=== PATIENT | female | born 1995 | race Caucasian/White ===

== ENCOUNTER 2019-06-10 14:16 | Emergency (ER) | payer SELFPAY ==
[~2019-06-10] VITALS: Ht 162.6 cm; Wt 66.2 kg
--- NOTE | 2019-06-10 14:30 | NUR ---
PT PRESENTS TO ED FEELING SUICIDAL. PT STATES SHE WAS ON DEPRESSION MEDS 2 YEARS AGO. STOPPED SEEING MD AT THAT TIME. PT STATES BROTHER COMMITTED SUICIDE LAST YEAR AND FATHER RECENTLY DX WITH CANCER. DENIES HI. HAS NO PLAN AT THIS TIME. ALL BELONGINGS IN SECURED LOCKER. PT IN SECURED ROOM
[2019-06-10 15:21] LABS: HCG UR SG 1.021 (1.003-1.030)
[2019-06-10 15:25] LABS: BASOPHILS # (AUTO) 0.04 x10^3/uL (0-0.1); BASOPHILS % (AUTO) 1 % (0-1); EOSINOPHILS # (AUTO) 0.02 x10^3/uL (0-0.4); EOSINOPHILS % (AUTO) 0 % (1-7); LYMPHOCYTES # (AUTO) 1.88 x10^3/uL (1-3.4); LYMPHOCYTES % (AUTO) 23 % (22-44); MD NO; MEAN CORPUSCULAR HEMOGLOBIN 28.3 pg (27.0-34.8); MEAN CORPUSCULAR HGB CONC 33.3 g/dL (32.4-35.8); MEAN CORPUSCULAR VOLUME 85.1 fL (80-100); MEAN PLATELET VOLUME 8.1 fL (7.4-10.4); MONOCYTES # (AUTO) 0.62 x10^3/uL (0.2-0.8); MONOCYTES % (AUTO) 8 % (2-9); NEUTROPHILS # (AUTO) 5.77 x10^3/uL (1.8-6.8); NEUTROPHILS % (AUTO) 69 % (42-75); PLATELET COUNT 392 x10^3/uL (130-400); RED BLOOD COUNT 4.81 x10^6/uL (3.82-5.3); RED CELL DISTRIBUTION WIDTH 15.1 % (9.6-15.2)
[2019-06-10 15:30] LABS: ALBUMIN 3.4 g/dL (3.4-5.0); ANION GAP 6 mmol/L (5-15); CHLORIDE 111 mmol/L (98-107)
[2019-06-10 15:31] LABS: SALICYLATE LEVEL < 1.7 mg/dL (2.8-20.0)
[2019-06-10 15:34] LABS: ALANINE AMINOTRANSFERASE 22 U/L (12-78); ALKALINE PHOSPHATASE 46 U/L (45-117); BILIRUBIN,TOTAL 0.7 mg/dL (0.2-1.0); CREATININE 0.55 mg/dL (0.55-1.02)
[2019-06-10 15:57] LABS: AMPHETAMINE SCREEN, URINE Negative (Negative); BARBITURATE SCREEN, URINE Negative (Negative); BENZODIAZEPINE SCREEN, URINE Negative (Negative); CANNABINOID SCREEN, URINE Positive (Negative); COCAINE SCREEN, URINE Negative (Negative); METHADONE SCREEN, URINE Negative (Negative); OPIATE SCREEN, URINE Negative (Negative)
--- NOTE | 2019-06-10 15:57 | NUR ---
PT RESTIN ON GURSAMM. NO NEEDS AT THIS TIME
--- NOTE | 2019-06-10 16:48 | NUR ---
PATIENT DENIED BY JOSE FROM [facility] SHE IS SELF PAY
--- NOTE | 2019-06-10 16:50 | NUR ---
PT IS RESTING JUAN JOSÉ. GIVEN SNACKS AND WATER
--- NOTE | 2019-06-10 17:14 | NUR ---
PT GIVEN WARM BLANKET AND TV CONTROLER
--- NOTE | 2019-06-10 17:42 | NUR ---
GIVEN MEAL TRAY.
--- NOTE | 2019-06-10 19:38 | NUR ---
GIVEN TOOTHPAST AND TOOTHBRUSH.
--- NOTE | 2019-06-10 19:45 | NUR ---
CALLED FOR HOSPITAL BED
--- NOTE | 2019-06-10 20:35 | NUR ---
THROUGHPUT NOTE: TRANSFER PACKET FAXED TO [facility].
--- NOTE | 2019-06-10 20:38 | NUR ---
PT IN HOSPITAL BED. WATCHING TV. SITTER PRESENT.
--- NOTE | 2019-06-10 21:14 | NUR ---
REPORT RECEIVED AND CARE ASSUMED. PT RESTING WITH EYES CLOSED. PT DENIES SI AT THIS TIME. WATER GIVEN PER REQUEST. NO FURTHER NEEDS EXPRESSED. ROOM REMAINS SECURED. SITTER IN PLACE.
--- NOTE | 2019-06-10 22:03 | NUR ---
PT RESTING WITH NO NEEDS EXPRESSED. SITTER REMAINS IN PLACE.
--- NOTE | 2019-06-10 23:10 | NUR ---
Pt sleeping with resp even and unlabored. Repositions self in bed. Sitter in place for obs. Room remains secured. No acute changes.
--- NOTE | 2019-06-11 00:10 | NUR ---
Pt sleeping with resp even and unlabored. Sitter in place for direct obs. Room secured. Awaiting acceptance to [facility].
--- NOTE | 2019-06-11 01:25 | NUR ---
Pt sleeping with resp even and unlabored. Repostioning self in bed. No needs expressed. Sitter in place. Room secured.
--- NOTE | 2019-06-11 02:20 | NUR ---
Pt resting. Water given per request. No further needs expressed. Room remains secured with sitter in place for obs.
[2019-06-11] MEDS ORDERED: LORazepam 1MG TABLET ONE (03:25)
[2019-06-11] MEDS ORDERED: LORazepam 1MG TABLET PO ONE (03:30)
--- NOTE | 2019-06-11 03:30 | NUR ---
PT SITTING UP IN BED. TEARFUL. STATES SHE IS FEELING INCREASED ANXIETY AND JUST WANTS TO GO HOME. PT AWARE SHE CAN NOT LEAVE AT THIS TIME BUT WE CAN ADDRESS A POSSIBLE REASSESS IN THE AM. DISCUSSED ANXIETY WITH ERP AND ORDER FOR 1 MG ATIVAN PO RECEIVED. PT MEDICATED PER SEP. NO FURTHER NEEDS EXPRESSED. SITTER IN PLACE WITH ROOM SECURED.
--- NOTE | 2019-06-11 04:34 | NUR ---
report from wily stuart
--- NOTE | 2019-06-11 04:35 | NUR ---
REPORT TO ANDREZ SELLERS
--- NOTE | 2019-06-11 06:51 | NUR ---
REPORT TO MARLO CRAIG
[2019-06-11] MEDS ORDERED: SERTRALINE 50MG TABLET ONE (07:17)
[2019-06-11 07:23] VITALS: BP 119/81
--- NOTE | 2019-06-11 07:23 | NUR ---
PT AMBULATED TO BR WITH STEADY GAIT, SI PRECAUTIONS IN PLACE. PT BACK TO BED IN SECURE RM. PT STATES SHE NO LONGER FEELS SUICIDAL, SHE FEELS "SAD AND TIRED", ALTHOUGH DENIES THOUGHTS OF SI. PT WISHES TO HAVE RE-EVAL WITH PSYCHOLOGICAL EXAMINER. VSS, NAD AT THIS TIME.
[2019-06-11] MEDS ORDERED: SERTRALINE 50MG TABLET PO SCH (09:00)
--- NOTE | 2019-06-11 09:56 | NUR ---
PT ATE ALL OF BREAKFAST TRAY, PT WALKED TO PHONE IN RESENDIZ, ALLOWED TO MAKE PHONE CALL WITH SUPERVISION. PT ESCORTED BACK TO BED, GIVEN WATER UPON REQUEST. NO OTHER NEEDS AT THIS TIME
--- NOTE | 2019-06-11 10:43 | NUR ---
PT WALKED TO PHONE TO MAKE ANOTHER PHONE CALL, PT BACK TO RM, SI PRECAUTIONS REMAIN IN PLACE. NAD NOTED.
--- NOTE | 2019-06-11 12:57 | NUR ---
TASK RN. Recieved report from MARLO Holcomb. Assuming care for primary RN who is on meal break. Pt resting on hospital bed in room secured for SI. Sitter near doorway in direct line of sight for observation. NADN. No needs expressed.
--- NOTE | 2019-06-11 13:53 | NUR ---
TP RN: Per Jessica at [facility], their facility is full & wont have any open beds until at least Thursday and this pt is "very far down the list"
--- NOTE | 2019-06-11 14:06 | NUR ---
PT RESTING ON BED IN SECURE RM. PT DENIES NEEDS AT THIS TIME, NAD NOTED
--- NOTE | 2019-06-11 14:48 | NUR ---
Pt resting on hospital bed in ED room 31. NADN. Psych TOBACCO SPRAYER at bedside. Pt ambulates to phone. NADN. No needs expressed.
--- NOTE | 2019-06-11 15:14 | NUR ---
Patient given discharge instructions and they have confirmed that they understand the instructions. Patient ambulatory with steady gait. Pt left with two personal belongings bag with all belongings from ED locker, Rx, referral list, and d/c paperwork. Pt encouraged to return to ED if symptoms worsen or change and to follow up with referrals. Pt stated verbal understanding.
== END 2019-06-11 15:17 | disposition home or self-care (01) ==
LOC: ED 16:27
DX: R45.851 Suicidal ideations (principal); F32.9 Major depressive disorder, single episode, unspecified
CPT/HCPCS: 36415; 80053; 80307; 81025; 85025; 99284